=== PATIENT | female | born 1955 | race Caucasian/White ===

== ENCOUNTER → 2021-05-04 | Outpatient (CLI) | payer MEDICARE ==
[2016-02-29 10:41] VITALS: BP 146/76
[~2021-05-04] MED LIST: ALBU2.5V8 IH; ASPI-886 PO; BUPR100T8 PO; CARV6.25 PO; CHOL100013 PO; CLON0.2T PO; CYCL10TA19 PO; DULO60CA7 PO; FURO-69 PO; HYDR-2868 PO; MOME13HF IH; OMEP20CA16 PO; POTA20TA12 PO; TRAZ-123 PO
== END ==
LOC: PF 12:43
PROVIDERS: ATTEND Internal Medicine Pulmonary Disease
DX: J45.909 Unspecified asthma, uncomplicated (principal)
CPT/HCPCS: 94060; 94640; 94729; 94664

== ENCOUNTER → 2021-06-24 | Day surgery (SDC) | payer MEDICARE ==
[~2021-06-24] VITALS: Ht 167.6 cm; Wt 133.6 kg
[~2021-06-24] MED LIST changes: +IV RINGERS,LACTATED 1000ML 1,000 ML IV SCH; +LIDOCAINE 1% PF 2 ML VIAL. ONE; +PROPOFOL 10 MG/ML (20ML) VIAL. IV ONE
[2021-06-24 07:48] VITALS: BP 175/93
[2021-06-24 08:51] VITALS: BP 138/86
== END | disposition home or self-care (01) ==
LOC: ENDOS 07:24
PROVIDERS: ATTEND Internal Medicine Gastroenterology
DX: Z12.11 Encounter for screening for malignant neoplasm of colon (principal); K64.0 First degree hemorrhoids; K57.30 Diverticulosis of large intestine without perforation or abscess without bleeding; K63.89 Other specified diseases of intestine; I11.0 Hypertensive heart disease with heart failure; I50.9 Heart failure, unspecified; I25.10 Atherosclerotic heart disease of native coronary artery without angina pectoris; E66.9 Obesity, unspecified; K21.9 Gastro-esophageal reflux disease without esophagitis; J45.909 Unspecified asthma, uncomplicated; M06.9 Rheumatoid arthritis, unspecified; F41.9 Anxiety disorder, unspecified; F32.9 Major depressive disorder, single episode, unspecified; G47.30 Sleep apnea, unspecified; Z85.3 Personal history of malignant neoplasm of breast; Z98.51 Tubal ligation status; Z98.890 Other specified postprocedural states; Z79.82 Long term (current) use of aspirin; Z79.899 Other long term (current) drug therapy; Z88.2 Allergy status to sulfonamides; Z82.49 Family history of ischemic heart disease and other diseases of the circulatory system; Z88.3 Allergy status to other anti-infective agents
CPT/HCPCS: G0121; J2704; J3490; 45378